=== PATIENT | male | born 1980 | race American Indian/Alaskan Native ===

== ENCOUNTER 2016-11-22 10:21 | Emergency (ER) | payer SELFPAY ==
[2016-11-22 11:05] LABS: Eosinophils % (Auto) 0.1 % (0.0-4.3); Hematocrit 38.4 % (30.3-42.9); Hemoglobin 12.3 gm/dl (10.1-14.3); Mean Corpuscular HGB Conc 32 % (30-34); Mean Corpuscular Hemoglobin 27 pg (28-32); Mean Corpuscular Volume 83 fl (79-97); Platelet Count 197 K/mm3 (140-440); Red Blood Count 4.64 M/mm3 (3.65-5.03); White Blood Count 4.6 K/mm3 (4.5-11.0)
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
[2016-11-22 11:21] LABS: Anion Gap 16 mmol/L; BUN/Creatinine Ratio 11.11; Blood Urea Nitrogen 10 mg/dL (9-20); Calcium 8.9 mg/dL (8.4-10.2); Carbon Dioxide 25 mmol/L (22-30); Chloride 100.4 mmol/L (98-107); Glucose 128 mg/dL (75-100); Potassium 3.8 mmol/L (3.6-5.0); Sodium 138 mmol/L (137-145)
[2016-11-22 12:24] LABS: Bilirubin,Urine NEG (Negative); Blood,Urine NEG (Negative); Ketones,Urine NEG (Negative); Leukocyte Esterase,Urine NEG (Negative); Mucus,Urine FEW /HPF; Nitrite,Urine NEG (Negative); Protein,Urine <15 mg/dL mg/dL (Negative); Urobilinogen,Urine < 2.0 mg/dL (<2.0)
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
[2016-11-22] MEDS ORDERED: SEROquel 50 MG, SEROquel 100 MG PO SCH (22:00)
[2016-11-22 22:04] LABS: Urine Drugs of Abuse Note Disclamer
[2016-11-22] MEDS: TOPAMAX PO SCH (22:07)
--- NOTE | 2016-11-23 13:13 | Progress Note ---
Subjective - Reason for Consult Consult date: 11/23/16 Reason for consult: follow up - Chief Complaint Chief complaint: "I need help." 36 year old male (transgender) seen in the emergency department for psychiatric evaluation. Historically he's been diagnosed with major depressive disorder but has been on multiple antipsychotics. No known diagnosis of bipolar or schizophrenia. He had two suicde attempts in the last 3 days. Sutures remain in place from self inflicted laceration. He reports auditory hallucinations and recently they were commanding him to harm himself. No side effects from the Seroquel or topamax reported. He using cocaine 2-3 times per month, binging. He denies other substance use. Mental Status Exam - Vital signs Last Vital Signs Temp 98.6 F 11/23/16 09:47 Pulse 58 L 11/23/16 09:47 Resp 18 11/23/16 09:47 BP 142/70 11/23/16 09:47 Pulse Ox 99 11/23/16 09:47 Assessment and Plan Impression: Major depressive disorder with psychotic features but bipolar disorder is likely Suicide attempt x 2 in the past 48-72 hours. Recent command hallucinations to harm self cocaine use disorder, binging reports draining abscess-not on antibiotics The charge nurse was informed of the abscess 11/22/16 and recent antibiotic prescription. The patient has only had one dose. The I&D was 4 days ago. Recommendation: Treat abscess per the medical team. Restart home medications: Increase Seroquel to 200mg hs for psychotic symptoms Topamax 50mg hs to start for mood Hold Remeron until further evaluation 1013 and transfer to inpatient psychiatric facility
[2016-11-23] MEDS: TOPAMAX PO SCH (22:05)
--- NOTE | 2016-11-24 13:40 | Progress Note ---
Subjective - Reason for Consult Consult date: 11/24/16 Reason for consult: Psychiatry Follow-up - Chief Complaint Chief complaint: "I don't like the staff" 36 year old male (transgender) seen in the emergency department for psychiatric evaluation. Today patient is cooperative, but irritable during assessment. She stated that the staff is unprofessional. She stated that her meals have been delayed. She stated that she would like to move back to room so she can watch TV. She denies any sleep disturbances the last 24 hrs. She denies SI/HI's and AVH's. I asked her why did she cut herself she stated, "I have done this in the past." Mental Status Exam - Vital signs Last Vital Signs Temp 98.6 F 11/24/16 08:16 Pulse 72 11/24/16 08:16 Resp 18 11/24/16 08:16 BP 105/55 11/24/16 08:16 Pulse Ox 100 11/24/16 08:16 - Exam Narrative exam: MSE: Appearance: cooperative, irritable Behavior: regular eye contact Speech: regular rate and tone Mood: "okay" Affect: labile Thought Process: circumstantial Thought Content: denies SI/HI's and AVH's Motor Activity: ambulatory Cognition: A/Ox 3 Insight: limited Judgment: limited Assessment and Plan Impression: MDD with psychotic features but bipolar disorder is likely, Suicide attempt x 2 in the past 48-72 hours. Substance Use DO (cocaine). RFA laceration with sutures (self inflicted). Recommendation/Plan: Continue 1013 with placement to psy services. Continue Seroquel 200 mg HS PO and Topamax 50 mg HS PO.
[2016-11-24] MEDS: TOPAMAX PO SCH (22:00)
--- NOTE | 2016-11-25 13:23 | Progress Note ---
Subjective - Reason for Consult Consult date: 11/25/16 Reason for consult: Psychiatry Follow-up - Chief Complaint Chief complaint: "I moved to another room" 36 year old male (transgender) seen in the emergency department for psychiatric evaluation. Today patient is calm and cooperative. She stated having a better night and the staff was much more pleasant. She stated that her SI's "come and go." Per our conversation yesterday, patient denied SI's. She would not elaborate why her SI's are passive today. She denies any pain from her right FA laceration. She denies HI's and AVH's. She stated no sleep disturbances or a poor appetite. Mental Status Exam - Vital signs Last Vital Signs Temp 98.6 F 11/25/16 09:40 Pulse 84 11/25/16 09:40 Resp 16 11/25/16 09:40 BP 110/66 11/25/16 09:40 Pulse Ox 99 11/25/16 09:40 - Exam Narrative exam: MSE: Appearance: calm, cooperative Behavior: regular eye contact Speech: regular rate and tone Mood: "better" Affect: congruent to mood Thought Process: circumstantial Thought Content: denies HI's and AVH's Motor Activity: ambulatory Cognition: A/Ox 3 Insight: limited Judgment: limited Assessment and Plan Impression: MDD with psychotic features but bipolar disorder is likely. Substance Use DO (cocaine). Today patient is calm and cooperative. RFA laceration with sutures (self inflicted). Passive SI's. Recommendation/Plan: Continue 1013 with placement to psy services. Continue Seroquel 200 mg HS PO and Topamax 50 mg HS PO.
[2016-11-25] MEDS: TOPAMAX PO SCH (21:59)
[2016-11-25] MEDS ORDERED: CLEOCIN PO ONE (22:10)
--- NOTE | 2016-11-26 17:14 | Progress Note ---
Subjective - Reason for Consult Consult date: 11/26/16 Reason for consult: follow up - Chief Complaint Chief complaint: "I don't know what I'm getting back to." 36 year old male (transgender) seen in the emergency department for psychiatric evaluation. Today patient is calm and cooperative. She discussed being upset with staff about room placement. She is now in a private room. She stated she has suicidal thoughts, hopelessness and helplessness. She wants her anti- androgen treatment and estrogen restarted per her home dose. She denies HI's and AVH's. She reports problems going to sleep and wants to restart Remeron. Mental Status Exam - Vital signs Last Vital Signs Temp 98.6 F 11/25/16 09:40 Pulse 81 11/25/16 22:00 Resp 17 11/25/16 22:00 BP 116/70 11/25/16 22:00 Pulse Ox 100 11/25/16 22:00 - Exam Narrative exam: MSE: Appearance: calm, cooperative Behavior: regular eye contact Speech: regular rate and tone Mood: hopeless Affect: congruent to mood Thought Process: circumstantial, tangential Thought Content: SI present. denies HI's and AVH's Motor Activity: ambulatory Cognition: A/Ox 3 Insight: limited Judgment: limited Assessment and Plan Impression: Major depressive disorder with psychotic features but bipolar disorder is likely Suicide attempt x 2 in the past 48-72 hours. Recent command hallucinations to harm self Suicidal ideation cocaine use disorder, binging reports draining abscess-not on antibiotics The charge nurse was informed of the abscess 11/22/16 and recent antibiotic prescription. The patient has only had one dose. The I&D was 1 week ago. Recommendation: Treat abscess per the medical team. Hormone treatment addressed with the the charge nurse (point of contact for recommendations to the medical team) Restart home medications: Continue Seroquel to 200mg hs for psychotic symptoms Topamax 50mg hs to start for mood Add Remeron 15mg hs for sleep 1013 and transfer to inpatient psychiatric facility
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
[2016-11-26] MEDS: CLEOCIN PO SCH (20:49)
[2016-11-26] MEDS: ALDACTONE PO SCH (23:11)
[2016-11-26] MEDS: ESTRACE PO SCH (23:12)
[2016-11-26] MEDS: REMERON PO SCH (23:20)
[2016-11-27] MEDS: TOPAMAX PO SCH ×2 (00:01→22:28)
[2016-11-27] MEDS: ESTRACE PO SCH ×3 (10:45→20:51)
[2016-11-27] MEDS: ALDACTONE PO SCH ×3 (10:45→20:50)
[2016-11-27] MEDS: CLEOCIN PO SCH ×3 (10:45→20:50)
--- NOTE | 2016-11-27 13:00 | Progress Note ---
Subjective - Reason for Consult Consult date: 11/27/16 Reason for consult: Psychiatry Follow-up - Chief Complaint Chief complaint: "I need help, period" 36 year old male (transgender) seen in the emergency department for psychiatric evaluation. Today patient is calm and cooperative. She stated that she is receiving her anti-androgen/estrogen treatment per her home medications. She acknowledged that the AH's has decreased, but still active. She stated that the staff was nice last night. She rate her depression 7/10, with 10 being the worse. She denies any pain from the laceration on her right FA. She denies HI's and VH's. She denies any side effects of her medications. Mental Status Exam - Vital signs Last Vital Signs Temp 98 F 11/27/16 10:45 Pulse 75 11/27/16 10:45 Resp 18 11/27/16 10:45 BP 102/79 11/27/16 10:45 Pulse Ox 99 11/27/16 10:45 Assessment and Plan Impression: MDD with psychotic features but bipolar disorder is likely. Substance Use DO (cocaine). Today patient is calm and cooperative. RFA laceration with sutures (self inflicted). Passive SI's. Recommendation/Plan: Continue 1013 with placement to psy services. Continue Seroquel 200 mg HS PO, Topamax 50 mg HS PO, and Remeron 15 mg PO HS. Discussed possible suicidality/medication induced matheus with patient reference Remeron.
[2016-11-27] MEDS: REMERON PO SCH (22:28)
[2016-11-28] MEDS: ALDACTONE PO SCH ×2 (10:25→15:26)
[2016-11-28] MEDS: CLEOCIN PO SCH ×2 (10:25→15:27)
[2016-11-28] MEDS: ESTRACE PO SCH ×2 (10:25→15:27)
--- NOTE | 2016-11-28 11:03 | Progress Note ---
Subjective - Reason for Consult Consult date: 11/28/16 Reason for consult: follow up - Chief Complaint Chief complaint: "I don't know what to do from here." 36 year old male (transgender) seen in the emergency department for psychiatric evaluation. Today patient is calm and cooperative. She is taking psychotropic medication, an antibiotic, and anti-androgen/hormone treatment while in the ER. She has a sutured laceration on her right forearm. She acknowledged that the AH' s has decreased, but still active. She complains of hunger pains and that she does not get enough to eat. She is eating her meals and getting snacks at times. She continues to report depression and suicidal thoughts. The last time she had SI was yesterday. She states it was fleeting. She denies HI's and VH' s. Mental Status Exam - Vital signs Last Vital Signs Temp 97 F L 11/27/16 19:39 Pulse 78 11/27/16 20:50 Resp 18 11/27/16 19:39 BP 104/63 11/27/16 19:39 Pulse Ox 99 11/27/16 19:39 - Exam Narrative exam: MSE: Appearance: calm, cooperative Behavior: regular eye contact Speech: regular rate and tone Mood: depressed Affect: congruent to mood Thought Process: linear Thought Content: SI present. Motor Activity: ambulatory Cognition: A/Ox 3 Insight: limited Judgment: limited Assessment and Plan Impression: Major depressive disorder with psychotic features but bipolar disorder is likely Suicide attempt x 2 last week. Recent command hallucinations to harm self Suicidal ideation cocaine use disorder, binging On antibiotic therapy for abscess. Recommendation: Abscess treatment per the medical team. Hormone treatment addressed by the medical team. Restart home medications: Continue Seroquel to 200mg hs for psychotic symptoms Topamax 50mg hs to start for mood Continue Remeron 15mg hs for sleep 1013 continues and will reassess in 24 hours to determine appropriate disposition.
[2016-11-28 15:27] VITALS: BP 99/60
== END 2016-11-28 18:42 ==
LOC: EDSEX → EEVIPCON 10:21 → ED 10:21
DX: R45.851 Suicidal ideations (principal); F32.9 Major depressive disorder, single episode, unspecified; F17.200 Nicotine dependence, unspecified, uncomplicated; Z88.2 Allergy status to sulfonamides; Z88.8 Allergy status to other drugs, medicaments and biological substances
CPT/HCPCS: 36415; 80048; 80307; 81001; 85025; 99285; G0480; 80320

== ENCOUNTER 2017-04-18 17:25 | Emergency (ER) | payer SELFPAY ==
[2017-04-18 18:53] LABS: Basophils # (Auto) 0.1 K/mm3 (0.0-0.1); Basophils % (Auto) 1.1 % (0.0-1.8); Eosinophils # (Auto) 0.1 K/mm3 (0.0-0.4); Hematocrit 43.9 % (35.5-45.6); Hemoglobin 14.4 gm/dl (11.8-15.2); Lymphocytes # (Auto) 1.3 K/mm3 (1.2-5.4); Lymphocytes % (Auto) 22.2 % (13.4-35.0); Mean Corpuscular HGB Conc 33 % (32-34); Mean Corpuscular Hemoglobin 27 pg (28-32); Mean Corpuscular Volume 83 fl (84-94); Monocytes # (Auto) 0.6 K/mm3 (0.0-0.8); Monocytes % (Auto) 10.4 % (0.0-7.3); Platelet Count 239 K/mm3 (140-440); Red Blood Count 5.32 M/mm3 (3.65-5.03); Red Cell Distribution Width 15.1 % (13.2-15.2)
[2017-04-18 19:14] LABS: Alanine Aminotransferase 11 units/L (7-56); Albumin 3.5 g/dL (3.9-5); BUN/Creatinine Ratio 18; Blood Urea Nitrogen 20 mg/dL (9-20); Calcium 8.6 mg/dL (8.4-10.2); Hemolysis Index 5
[2017-04-18 20:30] LABS: Bilirubin,Urine NEG (Negative); Blood,Urine NEG (Negative); Color,Urine Yellow (Yellow); Mucus,Urine FEW /HPF; Nitrite,Urine NEG (Negative)
[2017-04-18 20:37] LABS: Amphetamine Screen,Urine PRESUMPTIVE NEGATIVE; Benzodiazepines Screen,Urine PRESUMPTIVE NEGATIVE; Cannabinoid Screen,Urine PRESUMPTIVE NEGATIVE; Methadone Screen,Urine PRESUMPTIVE NEGATIVE; Opiate Screen,Urine PRESUMPTIVE NEGATIVE
[2017-04-18 20:39] LABS: Cocaine Screen,Urine PRESUMPTIVE POSITIVE
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
[2017-04-19] MEDS: TOPAMAX PO SCH (21:33)
[2017-04-20] MEDS: TOPAMAX PO SCH ×2 (10:16→22:35)
--- NOTE | 2017-04-20 15:18 | Progress Note ---
Subjective - Reason for Consult Consult date: 04/20/17 Reason for consult: Psychiatry Follow-up - Chief Complaint Chief complaint: "The voices are to much" 35 year old BM presents to - we have been asked to see him for a mental health eval. Today patient is calm and cooperative during the assessment. He stated that the voices are "overwhelming" and he want them to go away. He stated that the voices are telling him to run into traffic to kill himself. He rate his depression 7/10, with 10 being the worse. He denies HI's and VH's. He denies any side effects of his medications. Mental Status Exam - Vital signs Last Vital Signs Temp 97.7 F 04/20/17 14:38 Pulse 98 H 04/20/17 14:38 Resp 15 04/20/17 14:38 BP 98/54 04/20/17 14:38 Pulse Ox 100 04/20/17 14:38 - Exam Narrative exam: MSE: Appearance: calm, cooperative Behavior: regular eye contact Speech: regular rate and tone Mood: "okay" Affect: congruent to mood Thought Process: circumstantial Thought Content: denies HI's and VH's Motor Activity: sitting up in bed Cognition: A/O x3 Insight: variable Judgment: variable Assessment and Plan Impression: MDD severe type. Today patient is calm and cooperative during the assessment. DDx: Schizoaffective DO Recommendation/Plan: Continue 1013 with placement to inpatient psy services. Continue Topamax 100 mg PO Q12 hrs for mood and Seroquel 200 mg PO for mood/ psychosis. Discussed possible metabolic side effects of Seroquel with patient.
[2017-04-20] MEDS ORDERED: TYLENOL PO ONE (15:31)
[2017-04-21] MEDS: TOPAMAX PO SCH ×2 (12:37→22:05)
--- NOTE | 2017-04-21 12:41 | Progress Note ---
Subjective - Reason for Consult Consult date: 04/21/17 Reason for consult: Psychiatry Follow-up - Chief Complaint Chief complaint: "I rested well last night" 35 year old BM presents to - we have been asked to see him for a mental health eval. Today patient is calm and cooperative during the assessment. He stated that the voices are "decreasing", but still feel suicidal without a plan. He stated that his life is a "mess." He would not go into details about his life when asked. He denies HI's and VH's. He denies any side effects of his medications. Mental Status Exam - Vital signs Last Vital Signs Temp 97.7 F 04/20/17 14:38 Pulse 76 04/21/17 06:00 Resp 15 04/20/17 14:38 BP 103/67 04/21/17 06:00 Pulse Ox 100 04/20/17 14:38 - Exam Narrative exam: MSE: Appearance: calm, cooperative, disheveled Behavior: regular eye contact Speech: regular rate and tone Mood: "okay" Affect: congruent to mood Thought Process: circumstantial Thought Content: denies HI's and VH's Motor Activity: sitting up in bed Cognition: A/O x3 Insight: variable Judgment: variable Assessment and Plan Impression: MDD severe type with psychosis. Today patient is calm and cooperative during the assessment. DDx: Schizoaffective DO Recommendation/Plan: Continue 1013 with placement to inpatient psy services. Continue Topamax 100 mg PO Q12 hrs for mood and Seroquel 200 mg PO for mood/ psychosis. Discussed possible metabolic side effects of Seroquel with patient.
[2017-04-22] MEDS: TOPAMAX PO SCH (11:32)
[2017-04-22 16:01] VITALS: BP 105/72
== END 2017-04-22 16:00 ==
LOC: EDBD → ED 17:25 → EEVIPCON 17:25 → ED 04-22 16:00
DX: F32.9 Major depressive disorder, single episode, unspecified (principal); D57.1 Sickle-cell disease without crisis; Z88.2 Allergy status to sulfonamides; Z88.8 Allergy status to other drugs, medicaments and biological substances; Z79.899 Other long term (current) drug therapy
CPT/HCPCS: 36415; 80053; 80307; 81001; 85025; 99285; G0480; 80320

== ENCOUNTER 2017-04-26 15:41 | Emergency (ER) | payer OTHER ==
[2017-04-26] MEDS ORDERED: TYLENOL ONE (15:54)
[2017-04-26] MEDS ORDERED: D5NS 0.2% 1,000 ML IV SCH (16:00)
[2017-04-26 16:19] LABS: Basophils % (Auto) 0.2 % (0.0-1.8); Eosinophils % (Auto) 6.2 % (0.0-4.3); Hemoglobin 12.2 gm/dl (11.8-15.2); Mean Corpuscular HGB Conc 33 % (32-34); Mean Corpuscular Hemoglobin 27 pg (28-32); Mean Corpuscular Volume 83 fl (84-94); Platelet Count 174 K/mm3 (140-440); Red Blood Count 4.47 M/mm3 (3.65-5.03); Red Cell Distribution Width 15.5 % (13.2-15.2); Reticulocyte % 0.86 % (0.78-2.58)
[2017-04-26] MEDS ORDERED: ZOFRAN IV ONE (16:38)
[2017-04-26] MEDS ORDERED: MORPHINE IV ONE (16:38)
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
[2017-04-26] MEDS ORDERED: REGLAN IV ONE (17:22)
[2017-04-26 18:10] VITALS: BP 125/74
== END 2017-04-26 18:10 | disposition home or self-care (01) ==
LOC: ED 15:41
DX: M79.1 Myalgia (principal); D57.00 Hb-SS disease with crisis, unspecified; F17.200 Nicotine dependence, unspecified, uncomplicated
CPT/HCPCS: 36415; 85025; 85045; 85660; 96374; 96375; 99284; J2270; J2405; J2765

== ENCOUNTER 2017-04-30 22:35 | Emergency (ER) | payer SELFPAY ==
[2017-04-30 23:06] VITALS: BP 114/76
== END 2017-05-01 05:00 | disposition left against medical advice (07) ==
LOC: ED 22:35
DX: Z53.21 Procedure and treatment not carried out due to patient leaving prior to being seen by health care provider (principal)

== ENCOUNTER 2017-05-17 11:49 | Emergency (ER) | payer SELFPAY ==
[2017-05-17 14:00] LABS: Basophils % (Auto) 0.5 % (0.0-1.8); Eosinophils # (Auto) 0.4 K/mm3 (0.0-0.4); Eosinophils % (Auto) 5.6 % (0.0-4.3); Hematocrit 40.9 % (35.5-45.6); Hemoglobin 13.2 gm/dl (11.8-15.2); Lymphocytes # (Auto) 1.7 K/mm3 (1.2-5.4); Lymphocytes % (Auto) 24.5 % (13.4-35.0); Mean Corpuscular HGB Conc 32 % (32-34); Mean Corpuscular Hemoglobin 27 pg (28-32); Mean Corpuscular Volume 83 fl (84-94); Monocytes # (Auto) 0.7 K/mm3 (0.0-0.8); Monocytes % (Auto) 9.9 % (0.0-7.3); Platelet Count 211 K/mm3 (140-440); Red Blood Count 4.91 M/mm3 (3.65-5.03); Red Cell Distribution Width 16.2 % (13.2-15.2)
[2017-05-17] MEDS ORDERED: D5NS 0.2% 1,000 ML IV SCH (14:00)
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
[2017-05-18 01:59] LABS: BUN/Creatinine Ratio 16; Blood Urea Nitrogen 18 mg/dL (9-20); Calcium 8.6 mg/dL (8.4-10.2); Hemolysis Index 10
[2017-05-18 08:21] LABS: Bilirubin,Urine NEG (Negative); Blood,Urine NEG (Negative); Color,Urine Yellow (Yellow); Mucus,Urine FEW /HPF; Nitrite,Urine NEG (Negative); Protein,Urine <15 mg/dL mg/dL (Negative)
[2017-05-18 11:51] LABS: Amphetamine Screen,Urine PRESUMPTIVE NEGATIVE; Benzodiazepines Screen,Urine PRESUMPTIVE NEGATIVE; Cannabinoid Screen,Urine PRESUMPTIVE NEGATIVE; Methadone Screen,Urine PRESUMPTIVE NEGATIVE; Opiate Screen,Urine PRESUMPTIVE NEGATIVE
[2017-05-18 12:04] LABS: Cocaine Screen,Urine PRESUMPTIVE POSITIVE
--- NOTE | 2017-05-18 13:03 | Consultation ---
History of Present Illness - Reason for Consult Consult date: 05/18/17 Reason for consult: Mental Health Evaluation Requesting physician: LUCINDA TORRES - Chief Complaint Chief complaint: "It's my life" - History of Present Psychiatric Illness The patient is a 35-year-old male (transgender, originally male) presenting with a chief complaint of pain all over, auditory hallucination and suicidal ideation. This patient is known to me. Today the patient is calm and cooperative during the assessment. He stated that his life is "messed up" and he haven't been on his medications in weeks since he was discharged from [facility]. He stated that he used cocaine prior to his admission to "calm down the voices." He stated that he use cocaine often for this reason. He stated that he hear voices constantly throughout the day. He stated that the voices is telling him to kill himself, but he denies a plan. He stated a previous attempt of suicide in the past by overdosing. He denies HI's and VH's. He stated that his sleep has been erratic lately, but denies a poor appetite. He denies alcohol consumption (etoh). Medications and Allergies Allergies Allergy/AdvReac Type Severity Reaction Status Date / Time Sulfa (Sulfonamide Allergy Anaphylaxis Verified 11/22/16 10:42 Antibiotics) haloperidol lactate AdvReac Seizure Verified 11/22/16 10:41 [From Haldol] olanzapine [From Zyprexa] AdvReac Seizure Verified 11/22/16 10:41 risperidone AdvReac Seizure Verified 11/22/16 10:41 trazodone AdvReac Unknown Verified 11/22/16 10:41 ziprasidone HCl [From Geodon] AdvReac Unknown Verified 11/22/16 10:41 ziprasidone mesylate AdvReac Unknown Verified 11/22/16 10:41 [From Geodon] Home Medications Medication Instructions Recorded Confirmed Last Taken Type Clindamycin [Clindamycin CAP] 300 mg PO TID 11/26/16 11/26/16 Unknown History Clindamycin/Tretinoin 30 gm TP DAILY 11/26/16 11/26/16 Unknown History [Clinda-Tretinoin 1.2 %-0.025 %] Estradiol [Estrace] 1 mg PO TID 11/26/16 11/26/16 04/06/17 History Spironolactone [Aldactone] 100 mg PO QID 11/26/16 11/26/16 04/06/17 History Ibuprofen [Motrin 800 MG tab] 800 mg PO Q8HR PRN #20 tablet 04/26/17 Unknown Rx Active Meds: Active Medications Dextrose/Sodium Chloride (D5ns 0.2%) 1,000 mls @ 250 mls/hr IV DIRECT HEAVEN Past psychiatric history - Past Medical History Past Medical History: No medical history Past Surgical History: No surgical history - past Psychiatric treatment and history psychiatric treatment history: Multiple inpatient psy settings. Denies a fam psy hx. - Social History Social history: other (Reside at [place]) Mental Status Exam - Vital signs Last Vital Signs Temp 98.6 F 05/18/17 12:52 Pulse 71 05/18/17 12:52 Resp 20 05/18/17 12:52 BP 120/50 05/18/17 12:52 Pulse Ox 99 05/18/17 12:52 - Exam Narrative exam: MSE: Appearance: calm, cooperative Behavior: regular eye contact Speech: regular rate and tone Mood: "depressed" Affect: flat Thought Process: circumstantial Thought Content: denies HI's and VH's Motor Activity: ambulatory Cognition: A/O x 3 Insight: variable Judgment: variable Results Result Diagrams: 05/17/17 13:32 05/18/17 01:20 Abnormal lab results 05/17/17 05/18/17 Range/Units 13:32 01:20 MCV 83 L (84-94) fl MCH 27 L (28-32) pg RDW 16.2 H (13.2-15.2) % [place] % (Auto) 9.9 H (0.0-7.3) % [place] % (Auto) 5.6 H (0.0-4.3) % Salicylates < 0.3 L (2.8-20.0) mg/dL All other labs normal. Assessment and Plan Assessment and plan: Impression: MDD with psychosis. Today the patient is calm and cooperative during the assessment. He endorses SI's. DDx: R/O Bipolar, Schizoaffective DO Recommendation/Plan: Continue 1013 with placement to inpatient psy services. Start Topamax 100 mg PO Q12 for mood and Seroquel 200 mg PO HS for mood. Discussed possible metabolic side effects of Seroquel with patient.
[2017-05-18] MEDS ORDERED: TOPAMAX PO SCH (22:00)
[2017-05-19 00:06] VITALS: BP 105/65
--- NOTE | 2017-05-19 11:07 | Progress Note ---
Subjective - Reason for Consult Consult date: 05/19/17 Reason for consult: Psychiatry Follow-up - Chief Complaint Chief complaint: "I am okay" The patient is a 35-year-old male (transgender, originally male) presenting with a chief complaint of pain all over, auditory hallucination and suicidal ideation. Today the patient is calm and cooperative during the assessment. She stated that her main reason for coming to [facility] was to get medications. She stated that she was okay yesterday on admission, but stated having crisis to get medication she didn't have. She stated that she plan on following up with [facility] once discharged. She denies SI/HI's and AVH's. She denies any side effects of her medications. Mental Status Exam - Vital signs Last Vital Signs Temp 98.5 F 05/19/17 00:05 Pulse 88 05/19/17 00:05 Resp 18 05/19/17 00:05 BP 105/65 05/19/17 00:05 Pulse Ox 99 05/18/17 12:52 - Exam Narrative exam: MSE: Appearance: calm, cooperative Behavior: regular eye contact Speech: regular rate and tone Mood: "okay" Affect: congruent to mood Thought Process: linear Thought Content: denies SI/HI's and AVH's Motor Activity: ambulatory Cognition: A/O x 3 Insight: fair Judgment: fair Assessment and Plan Impression: MDD with psychosis. Substance Use DO (cocaine). Today the patient is calm and cooperative during the assessment. Patient is no threat to self DDx: R/O Bipolar, Schizoaffective DO, Substance Induced Mood/Psychotic DO Recommendation/Plan: Rescind 1013. Continue Topamax 100 mg PO Q12 for mood and Seroquel 200 mg PO HS for mood. Discussed possible metabolic side effects of Seroquel with patient. Patient given outpatient psy/rehab services for [facility]. Discussed with patient the importance to abstain from recreational drug use.
== END 2017-05-19 12:13 ==
LOC: ED 11:49
DX: F32.9 Major depressive disorder, single episode, unspecified (principal); F17.210 Nicotine dependence, cigarettes, uncomplicated; M79.1 Myalgia; Z76.5 Malingerer [conscious simulation]; Z88.5 Allergy status to narcotic agent; Z88.2 Allergy status to sulfonamides; Z79.899 Other long term (current) drug therapy; Z88.8 Allergy status to other drugs, medicaments and biological substances; Z90.81 Acquired absence of spleen; Z90.49 Acquired absence of other specified parts of digestive tract
CPT/HCPCS: 36415; 80048; 80307; 81001; 85025; 85045; 99285; G0480; 80320

== ENCOUNTER 2017-05-20 18:21 | Emergency (ER) | payer SELFPAY | END 2017-05-20 19:20 | disposition left against medical advice (07) | LOC: ED 18:21 | DX: Z53.21 Procedure and treatment not carried out due to patient leaving prior to being seen by health care provider (principal) ==